=== PATIENT | female | born 1980 | race Hispanic/Latino ===

== ENCOUNTER 2022-10-19 14:11 | Emergency (ER) | payer SELFPAY ==
[2022-10-19] MEDS ORDERED: Famotidine/PF 20 mg/2ml Vial ONE (14:45)
[2022-10-19] MEDS ORDERED: methylPREDNISolone Sod Succ/PF 125 MG/2 ML VIAL ONE (14:45)
[2022-10-19] MEDS ORDERED: diphenhydrAMINE 50 MG/ML VIAL ONE (14:45)
== END 2022-10-19 15:35 | disposition home or self-care (01) ==
LOC: CSHERS 14:11
DX: T78.40XA Allergy, unspecified, initial encounter (principal); I10 Essential (primary) hypertension
CPT/HCPCS: 96374; 96375; J1200; J2930; S0028